=== PATIENT | female | born 1960 | race Caucasian/White ===

== ENCOUNTER → 2018-02-08 | Outpatient (CLI) | payer OTHER ==
[~2018-02-08] MED LIST: ALPR1; ALPRAZOLAM; ASPI81EC PO; ASPIRIN; CYAN1000 PO; CYAN1000I IM; Catapres0.1 MG PO; ESCI10; ESTMED1.5T PO; ESTRADIOL1 MG PO; FLUT110OIA INH; FURO20; FURO20 PO; HYDMOR2 PO; HYDROCHLOROTHIAZIDE PO; LABE100; LABE200 PO; LEVO2 PO; LEVSOD25 PO; LOSARTAN PO; LOSARTAN POTAS100 MG PO; MELO7.5 PO; METO100ER; METO25ER; MULVITMINE; Norco 5-325 Ta1 EACH PO; OMEP20ER PO; ONDA8; OXYC5 PO; OXYCODONE; OXYMORPHONE HCL5 M1; POTA8 PO; POTBIC25; PROM25 PO; RXHYDMOR2 PO; TAMS.4ER PO; VALA500 PO; VENLAFAXINE; VIIBRYD PO; VITAMIN B; Venlafaxine HC100 MG PO; Xanax2 MG PO; ZOLP12.5 PO; [UNRECOGNIZED DRUG - OTHER]; [UNRECOGNIZED DRUG - REMARK]
== END | disposition home or self-care (01) ==
LOC: LAB SHORT 10:15 → LAB 10:15
PROVIDERS: Internal Medicine Hematology & Oncology
DX: D50.9 Iron deficiency anemia, unspecified (principal)
CPT/HCPCS: 82728; 83540; 83550

== ENCOUNTER 2019-08-01 09:53 | Day surgery (SDC) | payer OTHER ==
[~2019-08-01] VITALS: Ht 175.3 cm; Wt 125.0 kg
[~2019-08-01 09:53] MED LIST changes: -METO25ER; +METO25ER PO
[2019-08-01] MEDS ORDERED: BENZ100A PO (10:59)
[2019-08-01] MEDS ORDERED: VITAMIN D33000 UNI1 (11:00)
[2019-08-01] MEDS ORDERED: AMIT50 (11:01)
[2019-08-01] MEDS ORDERED: THYROSAFE (11:02)
== END 2019-08-01 11:38 | disposition home or self-care (01) ==
LOC: ORSCSDS 09:53
PROVIDERS: Internal Medicine Gastroenterology
PROC: 0DJ08ZZ Inspection of Upper Intestinal Tract, Via Natural or Artificial Opening Endoscopic (ICD-10-PCS; principal; 2019-08-01 11:15)
DX: K76.0 Fatty (change of) liver, not elsewhere classified (principal); I10 Essential (primary) hypertension; E03.9 Hypothyroidism, unspecified; K21.9 Gastro-esophageal reflux disease without esophagitis; F41.8 Other specified anxiety disorders; D50.9 Iron deficiency anemia, unspecified; Z98.84 Bariatric surgery status; G47.33 Obstructive sleep apnea (adult) (pediatric); E66.9 Obesity, unspecified; Z68.41 Body mass index [BMI] 40.0-44.9, adult; Z79.899 Other long term (current) drug therapy
CPT/HCPCS: J2250; J2704; J7120

== ENCOUNTER → 2020-01-21 | Outpatient (CLI) | payer OTHER ==
[~2020-01-21] MED LIST changes: +AMIT50; +BENZ100A PO; +THYROSAFE; +VITAMIN D33000 UNI1
[2020-01-21 20:13] LABS: Percent Saturation 25.6 % (15.0-50.0)
== END | disposition home or self-care (01) ==
LOC: LAB 18:09 → LAB SHORT 18:09
PROVIDERS: Internal Medicine Hematology & Oncology
DX: D50.9 Iron deficiency anemia, unspecified (principal)
CPT/HCPCS: 83540; 83550

== ENCOUNTER → 2020-11-19 | Outpatient (CLI) | payer OTHER, SELFPAY | LOC: LAB SHORT 07:43 → PLD 07:43 | DX: L60.2 Onychogryphosis (principal); B35.1 Tinea unguium | CPT/HCPCS: 88305; 88312 ==

== ENCOUNTER → 2022-03-29 | Outpatient (CLI) | payer SELFPAY | END | disposition home or self-care (01) | LOC: LAB SHORT 11:44 → LAB 11:44 | DX: L20.9 Atopic dermatitis, unspecified (principal); L03.311 Cellulitis of abdominal wall | CPT/HCPCS: 87070; 87075; 87205 ==

== ENCOUNTER → 2022-09-30 | Outpatient (CLI) | payer BC ==
[2022-09-30 12:03] LABS: Sodium, Urine, Random 37 mmol/L (20-110)
[2022-09-30 14:35] LABS: Osmolality, Urine 416 mos/kg (15-1400)
== END | disposition home or self-care (01) ==
LOC: LAB SHORT 09:26
PROVIDERS: Family Medicine
DX: E87.1 Hypo-osmolality and hyponatremia (principal)
CPT/HCPCS: 83935; 84300

== ENCOUNTER → 2024-03-07 | Outpatient (CLI) | payer BC | LOC: LAB 09:52 → LAB SHORT 09:52 | DX: N39.0 Urinary tract infection, site not specified (principal) | CPT/HCPCS: 87077; 87086; 87186 ==

== ENCOUNTER 2024-06-26 18:16 | Emergency (ER) | payer BC ==
[~2024-06-26] VITALS: Ht 175.3 cm; Wt 127.0 kg
[2024-06-26 19:00] VITALS: BP 170/75
[2024-06-26] MEDS ORDERED: Droperidol 5 mg/2 ml Vial IV ONE (19:40)
[2024-06-26] MEDS ORDERED: NS 1,000 ML IV SCH (19:45)
== END 2024-06-26 21:48 | disposition home or self-care (01) ==
LOC: ER 18:16
DX: G43.909 Migraine, unspecified, not intractable, without status migrainosus (principal); Z88.2 Allergy status to sulfonamides; Z88.1 Allergy status to other antibiotic agents; Z88.5 Allergy status to narcotic agent; Z88.8 Allergy status to other drugs, medicaments and biological substances; Z91.048 Other nonmedicinal substance allergy status; Z79.890 Hormone replacement therapy; Z79.899 Other long term (current) drug therapy
CPT/HCPCS: 70450; 93005; 93010; 96361; 96374; 99284-25; J1790; J7030

== ENCOUNTER → 2024-06-26 | Outpatient (CLI) | payer BC | LOC: LAB 08:35 → LAB SHORT 08:35 | DX: R51.9 Headache, unspecified (principal) | CPT/HCPCS: 85651 ==

== ENCOUNTER → 2024-11-01 | Outpatient (CLI) | payer BC | LOC: LAB 14:11 → LAB SHORT 14:11 | DX: R82.81 Pyuria (principal) | CPT/HCPCS: 87077; 87086; 87186 ==